=== PATIENT | female | born 1995 | race Caucasian/White ===

== ENCOUNTER 2024-11-17 18:06 | Emergency (ER) | payer OTHER, MEDICAID | END 2024-11-17 18:46 | disposition home or self-care (01) | LOC: MADERS 18:06 | DX: B20 Human immunodeficiency virus [HIV] disease (principal); Z76.0 Encounter for issue of repeat prescription; L98.499 Non-pressure chronic ulcer of skin of other sites with unspecified severity; F17.210 Nicotine dependence, cigarettes, uncomplicated; F17.290 Nicotine dependence, other tobacco product, uncomplicated | CPT/HCPCS: 87070; 87205; 99283 ==

== ENCOUNTER 2024-12-29 09:15 | Emergency (ER) | payer OTHER, MEDICAID ==
[2024-12-29 10:30] LABS: Pregnancy Test - Urine (BHCG) Negative (Negative); Pregu Control Background? CLEAR/WHITE (CLR/WHITE); Pregu Control Bar Appear? YES (CONTROL BAR)
== END 2024-12-29 11:47 | disposition home or self-care (01) ==
LOC: MADERS 09:15
DX: S83.92XA Sprain of unspecified site of left knee, initial encounter (principal); S39.012A Strain of muscle, fascia and tendon of lower back, initial encounter; S29.012A Strain of muscle and tendon of back wall of thorax, initial encounter; J06.9 Acute upper respiratory infection, unspecified; H73.92 Unspecified disorder of tympanic membrane, left ear; B20 Human immunodeficiency virus [HIV] disease; D64.9 Anemia, unspecified; F17.210 Nicotine dependence, cigarettes, uncomplicated; F17.290 Nicotine dependence, other tobacco product, uncomplicated; Y04.0XXA Assault by unarmed brawl or fight, initial encounter
CPT/HCPCS: 71046; 72128; 72131; 81025